=== PATIENT | female | born 1995 | race Caucasian/White ===

== ENCOUNTER 2018-01-14 13:07 | Emergency (ER) | payer OTHER ==
[2018-01-14 13:17] VITALS: BP 105/59
--- NOTE | 2018-01-14 13:34 | UC ---
Abdominal Pain Female HPI - HPI Summary HPI Summary: Patient at urgent care today complaining of diffuse abdominal pain. Denies nausea vomiting diarrhea. No fevers chills. No urinary tract symptoms. Patient is taking Diflucan for which she believes to be vaginal yeast infection this has not been seen by anyone the medicine was called i her friend's mother. Patient states she was seen 2 weeks ago diagnosed with BV with complaints of abdominal pain states she had a transvaginal ultrasound at that time which was otherwise normal. States she has history of problems with her ovaries - History of Current Complaint Chief Complaint: UCAbdominalPain Stated Complaint: ABDOMINAL COMPLAINT Time Seen by Provider: 01/14/18 13:31 Hx Obtained From: Patient Hx Last Menstrual Period: implanon ?: No Onset/Duration: Lasting Minutes, Lasting Days - 3, Still Present Timing: Constant Severity Initially: Moderate Severity Currently: Moderate Pain Intensity: 8 Pain Scale Used: 0-10 Numeric Location: Diffuse Radiates: No Radiates to: Back - Does have some low back pain Character: Aching, Colicy, Cramping Aggravating Factor(s): Food, Movement Alleviating Factor(s): Nothing Associated Signs and Symptoms: Positive: Vaginal Discharge. 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 Patient state she is unable to go to work today because of the abdominal pain Lives: With Family Alcohol Use: None Substance Use Type: None Smoking Status (MU): Never Smoked Tobacco Review of Systems Constitutional: Negative Skin: Negative Eyes: Negative ENT: Negative Respiratory: Negative Cardiovascular: Negative Gastrointestinal: Abdominal Pain Genitourinary: Negative Motor: Negative Neurovascular: Negative Musculoskeletal: Negative Neurological: Negative Psychological: Negative Is Patient Immunocompromised?: No All Other Systems Reviewed And Are Negative: Yes Physical Exam Triage Information Reviewed: Yes Appearance: Well-Appearing, No Pain Distress, Well-Nourished Vital Signs: Initial Vital Signs Temp 98.2 F 01/14/18 13:12 Pulse 74 01/14/18 13:12 Resp 18 01/14/18 13:12 BP 105/59 01/14/18 13:12 Pulse Ox 100 01/14/18 13:12 Vital Signs Reviewed: Yes Eye Exam: Normal Eyes: Positive: Conjunctiva Clear ENT Exam: Normal ENT: Positive: Normal ENT inspection, Hearing grossly normal. Negative: Nasal congestion, Hoarse voice, Sinus tenderness, Uvula midline Dental Exam: Normal Neck exam: Normal Neck: Positive: Supple, Nontender, No Lymphadenopathy Respiratory Exam: Normal Respiratory: Positive: Chest non-tender, Lungs clear, Normal breath sounds, No respiratory distress, No accessory muscle use Cardiovascular Exam: Normal Cardiovascular: Positive: RRR, Pulses Normal, Brisk Capillary Refill Abdominal Exam: Normal Abdomen Description: Positive: Soft, Other: - Diffuse abdominal tenderness. Negative: No Organomegaly, CVA Tenderness (R), CVA Tenderness (L) Bowel Sounds: Positive: Present Pelvic Exam: Positive: External Exam Normal, Speculum Exam Normal, No Cerv. Motion Tender, Tender Adnexa - left Musculoskeletal Exam: Normal Musculoskeletal: Positive: Strength Intact, ROM Intact, No Edema Neurological Exam: Normal Neurological: Positive: Alert, Muscle Tone Normal Psychological Exam: Normal Skin Exam: Normal Diagnostics - Laboratory Diagnostic Studies Completed/Ordered: Affirm and Appitima swab obtained Abd Pain Female Course/Dx - Course Course Of Treatment: Ibuprofen and heat for her abdomen, to the emergency department should pain worsen or fail to improve follow up at [facility] on Tuesday establish care with a primary M.D. - Differential Dx/Diagnosis Provider Diagnoses: Left lower Pelvic pain Discharge - Sign-Out/Discharge Documenting (check all that apply): Discharge - Discharge Plan Condition: Stable Disposition: HOME Patient Education Materials: Ibuprofen (By mouth), Pelvic Pain in Women (ED) Forms: *Work Release Referrals: [facility] [place] [facility] [Outside] - If Needed [facility] [Outside] - 2 Days Additional Instructions: Please go to the emergency department should symptoms worsen or fail to improve. Follow up at [facility] on Tuesday - Billing Disposition and Condition Condition: STABLE Disposition: HOME
== END 2018-01-14 15:20 | disposition home or self-care (01) ==
LOC: UCEAST 13:07
DX: R10.2 Pelvic and perineal pain (principal); N89.8 Other specified noninflammatory disorders of vagina; Z32.02 Encounter for pregnancy test, result negative; Z88.0 Allergy status to penicillin
CPT/HCPCS: 81003; 84702; 87480; 87491; 87510; 87591; 87661; 99202; G0463

== ENCOUNTER 2018-01-16 14:52 | Emergency (ER) | payer OTHER ==
[2018-01-16 14:57] VITALS: BP 148/62
--- NOTE | 2018-01-17 15:43 | UC ---
- Progress Note Progress Note: Negative for BV and yeast. [facility] are [facility]isting. I see that she was recently in the ED, but LWBS. Discharge - Sign-Out/Discharge Documenting (check all that apply): Post-Discharge Follow Up - Discharge Plan Condition: Stable Disposition: LEFT WITHOUT BEING SEEN Referrals: No Primary Care Phys,NOPCP [Primary Care Provider] - - Billing Disposition and Condition Condition: STABLE Disposition: LWBS
== END 2018-01-16 15:51 | disposition left against medical advice (07) ==
LOC: ED 14:52
DX: R10.30 Lower abdominal pain, unspecified (principal); Z53.21 Procedure and treatment not carried out due to patient leaving prior to being seen by health care provider

== ENCOUNTER 2018-04-06 10:17 | Emergency (ER) | payer OTHER ==
[2018-04-06 10:31] VITALS: BP 112/77
[2018-04-06 11:12] LABS: ABS Basophils 0 10^3/ul (0-0.2); ABS Eosinophils 0.1 10^3/ul (0-0.6); ABS Lymphocytes 1.5 10^3/ul (1.0-4.8); ABS Monocytes 0.5 10^3/ul (0-0.8); ABS Nucleated RBC 0 10^3/ul; Eosinophil % 1.3 % (0-6); Hematocrit 33 % (35-47); Hemoglobin 11.7 g/dl (12.0-16.0); Lymphocyte % 29.9 % (25-47); Mean Corpuscular HGB Conc 35 g/dl (31-36); Mean Corpuscular Hemoglobin 31 pg (27-31); Mean Corpuscular Volume 87 fL (80-97); Mean Platelet Volume 7.6 um3 (7.4-10.4); Nucleated Red Blood Cells % 0.1; Platelet Count 320 10^3/ul (150-450); Red Blood Count 3.78 10^6/ul (4.00-5.40); Red Cell Distribution Width 13 % (10.5-15); White Blood Count 5.1 10^3/ul (3.5-10.8)
--- NOTE | 2018-04-06 11:13 | PN ---
Progress Note - Progress Note Date of Service: 04/06/18 Note: pelvic done by Susanne HERNANDEZ on exam has white discharge but patient took a monostat nontender bimanual no blood or lesions
[2018-04-06 11:33] LABS: EGFR Non-African American 95.6 (>60)
[2018-04-06 11:44] LABS: Urine Appearance Cloudy; Urine Color Orange; Urine Specific Gravity 1.021 (1.010-1.030)
--- NOTE | 2018-04-06 12:32 | RAD ---
Indication: Right flank pain. CT of the abdomen and pelvis was performed without oral or IV contrast administration. Coronal and sagittal reconstructed images were obtained. The lung bases demonstrate no pleural fluid, nodules or masses. Heart is of normal size without evidence of pericardial effusion. Liver is normal in size. No focal lesions or intrahepatic ductal dilatation is noted. The study is limited due to lack of IV contrast. Gallbladder is partially contracted. No definite catheter gallstones are noted. Pancreas demonstrates no mass or pancreatic duct dilatation. The spleen is normal in size. No adrenal lesions are noted. The kidneys demonstrate no definite hydronephrosis in either kidney. Tiny calcification is noted in the right pelvis which does not appear to be related to the ureter no evaluation is extremely difficult due to lack of intraperitoneal fat. Likely contrast is noted in a normal-appearing appendix. The uterus is unremarkable. There is a cyst presumably in the right ovary measuring up to 2.1 cm. The urinary bladder is otherwise unremarkable. IMPRESSION: No definite obstructive uropathy is noted although evaluation is limited due to lack of intraperitoneal fat. Tiny calcification in the right pelvis close to the sidewall is likely not related to ureteral calculi. Likely normal appendix. Likely right ovarian cyst measuring up to 2.1 cm.
[2018-04-06] MEDS ORDERED: Fluconazole 150 MG (NF) 150 MG TAB PO ONE (12:35)
--- NOTE | 2018-04-06 12:45 | ED ---
Venessa Saldana Emily, scribed for Anshu Borrego on 04/06/18 at 1047 . Abdominal Pain/Female - HPI Summary HPI Summary: This patient is a 22 year old F presenting to [facility] with a chief complaint of acute on chronic pain in her urethra that began 3 days ago. The patient rates the pain 5/10 in severity. Symptoms aggravated by nothing. Symptoms alleviated by nothing. Patient reports abd pain. Patient reports that she was diagnosed with interstitial cystitis and ovarian cysts. - History of Current Complaint Chief Complaint: EDUrogenitalProblems Stated Complaint: UTI LIKE SYMPTOMS Time Seen by Provider: 04/06/18 10:37 Hx Last Menstrual Period: implanon ?: No Onset/Duration: Sudden Onset, Lasting Weeks, Worse Since - 3 days ago Timing: Constant Severity Initially: Moderate Severity Currently: Moderate Pain Intensity: 5 Pain Scale Used: 0-10 Numeric Location: Suprapubic Radiates: No Aggravating Factor(s): Nothing Alleviating Factor(s): Nothing Allergies/Adverse Reactions: Allergies Allergy/AdvReac Type Severity Reaction Status Date / Time amoxicillin Allergy Hives Verified 04/06/18 10:31 Home Medications: Home Medications NK [No Home Medications Reported] 04/06/18 [History Confirmed 04/06/18] PMH/Surg Hx/FS Hx/Imm Hx Previously Healthy: No GI History: Reports: Hx Ulcer, Other GI Disorders - Interstitial cystitis. Ovarian cysts Opthamlomology History: Denies: Hx Legally Blind EENT History: Denies: Hx Deafness - Surgical History Surgery Procedure, Year, and Place: t&a Hx Anesthesia Reactions: No Infectious Disease History: No Infectious Disease History: Denies: Traveled Outside the [place] in Last 30 Days - Family History Known Family History: Positive: Cardiac Disease, Diabetes - Social History Occupation: Employed Full-time Alcohol Use: None Hx Substance Use: No Substance Use Type: Reports: None Hx Tobacco Use: No Smoking Status (MU): Never Smoked Tobacco Review of Systems Positive: Abdominal Pain Genitourinary: Other - Positive urethral pain All Other Systems Reviewed And Are Negative: Yes Physical Exam - Summary Physical Exam Summary: Appearance: Well appearing, no pain distress Skin: warm, dry, reflects adequate perfusion Head/face: normal Eyes: EOMI, ZITA ENT: normal Neck: supple, non-tender Respiratory: CTA, breath sounds present Cardiovascular: RRR, pulses symmetrical Abdomen: bilateral pelvic tenderness, soft Bowel: present Musculoskeletal: normal, strength/ROM intact Neuro: normal, sensory motor intact, A&Ox3 Triage Information Reviewed: Yes Vital Signs On Initial Exam: Initial Vitals Temp Pulse Resp BP Pulse Ox 98.2 F 88 16 112/77 97 04/06/18 10:24 04/06/18 10:24 04/06/18 10:24 04/06/18 10:24 04/06/18 10:24 Vital Signs Reviewed: Yes Diagnostics - Vital Signs Vital Signs Temp Pulse Resp BP Pulse Ox 04/06/18 10:24 98.2 F 88 16 112/77 97 - Laboratory Lab Results: Lab Results 04/06/18 04/06/18 04/06/18 Range/Units 10:59 10:59 11:17 WBC 5.1 (3.5-10.8) 10^3/ul RBC 3.78 L (4.00-5.40) 10^6/ul Hgb 11.7 L (12.0-16.0) g/dl Hct 33 L (35-47) % MCV 87 (80-97) fL MCH 31 (27-31) pg MCHC 35 (31-36) g/dl RDW 13 (10.5-15) % Plt Count 320 (150-450) 10^3/ul MPV 7.6 (7.4-10.4) um3 Neut % (Auto) 58.4 (38-83) % Lymph % (Auto) 29.9 (25-47) % [place] % (Auto) 9.6 H (0-7) % Eos % (Auto) 1.3 (0-6) % Baso % (Auto) 0.8 (0-2) % Absolute Neuts (auto) 3.0 (1.5-7.7) 10^3/ul Absolute Lymphs (auto) 1.5 (1.0-4.8) 10^3/ul Absolute Monos (auto) 0.5 (0-0.8) 10^3/ul Absolute Eos (auto) 0.1 (0-0.6) 10^3/ul Absolute Basos (auto) 0 (0-0.2) 10^3/ul Absolute Nucleated RBC 0 10^3/ul Nucleated RBC % 0.1 Sodium 138 (135-145) mmol/L Potassium 4.0 (3.5-5.0) mmol/L Chloride 107 (101-111) mmol/L Carbon Dioxide 26 (22-32) mmol/L Anion Gap 5 (2-11) mmol/L BUN 9 (6-24) mg/dL Creatinine 0.77 (0.51-0.95) mg/dL Est GFR ( Amer) 115.6 (>60) Est GFR (Non-Af Amer) 95.6 (>60) BUN/Creatinine Ratio 11.7 (8-20) Glucose 97 (70-100) mg/dL Calcium 8.9 (8.6-10.3) mg/dL Total Bilirubin 0.50 (0.2-1.0) mg/dL AST 13 (13-39) U/L ALT 9 (7-52) U/L Alkaline Phosphatase 31 L (34-104) U/L Total Protein 6.2 L (6.4-8.9) g/dL Albumin 4.3 (3.2-5.2) g/dL Globulin 1.9 L (2-4) g/dL Albumin/Globulin Ratio 2.3 (1-3) Lipase 24 (11.0-82.0) U/L Beta HCG, Quant < 0.60 mIU/mL Urine Color [place] Urine Appearance Cloudy Urine pH (5-9) Ur Specific [place] 1.021 (1.010-1.030) Urine Protein (Negative) Urine Ketones (Negative) Urine Blood (Negative) Urine Nitrate (Negative) Urine Bilirubin (Negative) Urine Urobilinogen (Negative) Ur Leukocyte Esterase (Negative) Urine WBC (Auto) 1+(6-10/hpf) A (Absent) Urine RBC (Auto) Trace(0-2/hpf) (Absent) Ur Squamous Epith Cells Present A (Absent) Urine Bacteria 1+ A (Absent) Urine Glucose (Negative) Urine Ascorbic Acid (Negative) Result Diagrams: 04/06/18 10:59 04/06/18 10:59 Lab Statement: Any lab studies that have been ordered have been reviewed, and results considered in the medical decision making process. - CT Abdomen/Pelvis CT CT Interpretation Completed By: Radiologist - Abdomen/Pelvis CT reveals, per radiologist, No definite obstructive uropathy is noted although evaluation is limited due to lack of intraperitoneal fat. Tiny calcification in the right pelvis close to the sidewall is likely not related to ureteral calculi. Likely normal appendix. Likely right ovarian cyst measuring up to 2.1 cm. ED physician has reviewed this radiology report. Re-Evaluation - Re-Evaluation First Eval Re-Evaluation Time: 12:37 Change: Unchanged Comment: Discussed results and plan of care with pt Abdominal Pain Fem Course/Dx - Course Course Of Treatment: This patient is a 22 year old F presenting to [facility] with a chief complaint of acute on chronic pain in her urethra that began 3 days ago. Physical Exam Findings: Tenderness bilateral pelvic area. Abdomen/Pelvis CT reveals, per radiologist, No definite obstructive uropathy is noted although evaluation is limited due to lack of intraperitoneal fat. Tiny calcification in the right pelvis close to the sidewall is likely not related to ureteral calculi. Likely normal appendix. Likely right ovarian cyst measuring up to 2.1 cm. Blood work and UA obtained. Pelvic exam was performed by Susanne. The patient will be called if results are positive. Advised to continue antibiotics and follow up with [facility]. Patient will be discharged with follow up with Dr. Leong. The patient is agreeable with this plan. - Diagnoses Differential Diagnosis: Positive: Ovarian Cyst, Renal Colic, Urinary Tract Infection Provider Diagnoses: Pelvic pain, UTI (urinary tract infection) Discharge - Sign-Out/Discharge Documenting (check all that apply): Discharge/Admit/Transfer - Discharge home - Discharge Plan Condition: Stable Disposition: HOME Patient Education Materials: Urinary Tract Infection in Women (DC), Pelvic Pain in Women (ED) Referrals: Jeffry Snow DO [Primary Care Provider] - 3 Days Michelle Leong MD [Medical Doctor] - 3 Days Additional Instructions: RETURN TO THE EMERGENCY DEPARTMENT FOR NEW OR WORSENING SYMPTOMS - Billing Disposition and Condition Condition: STABLE Disposition: Home The documentation as recorded by the Venessa restrepo Emily accurately reflects the service I personally performed and the decisions made by , Anshu Borrego.
--- NOTE | 2018-04-07 09:08 | PN ---
Progress Note - Progress Note Date of Service: 04/06/18 Note: Call the patient at approximately 9 AM to discuss results of Gardnerella/yeast vaginal DNA final. Negative Trang, positive Gardnerella. Patient states she has had this in the past and was treated effectively with metronidazole gel. She continues to have slight discomfort in the bilateral lower abdominal quadrants as well as pelvic pain. She continues to have discharge most consistent with trang, however this was negative. She continues to take her ciprofloxacin for UTI symptoms. I have prescribed metronidazole 0.75% gel 5 days to her pharmacy She will follow-up with her PCP/[employer] [facility] if symptoms do not resolve or become worse.
== END 2018-04-06 13:02 | disposition home or self-care (01) ==
LOC: ED 10:17
DX: N39.0 Urinary tract infection, site not specified (principal); R10.9 Unspecified abdominal pain; R10.2 Pelvic and perineal pain
CPT/HCPCS: 36415; 74176; 80053; 81003; 81015; 83690; 84702; 85025; 87086; 87480; 87491; 87510; 87591; 87661; 99283